=== PATIENT | female | born 1945 | race Caucasian/White ===

== ENCOUNTER → 2019-10-27 10:23 | Outpatient (CLI) | payer MEDICARE, OTHER, SELFPAY ==
[2019-10-27 13:18] LABS: Coronavirus 19 IgG Antibody Negative (Negative); Coronavirus 19 IgM Antibody Negative (Negative)
== END ==
PROVIDERS: PCP Internal Medicine Gastroenterology; Visit Provider Internal Medicine Gastroenterology
DX: Z01.818 Encounter for other preprocedural examination (principal)
CPT/HCPCS: 36415; 86328

== ENCOUNTER 2019-10-30 13:29 | Day surgery (SDC) | payer MEDICARE, OTHER, SELFPAY ==
[2019-10-24 12:34] VITALS: BMI 33.5
[2019-10-30] VITALS (7 sets, daily range): BP systolic 117–153; BP diastolic 56–85; PULSE 61–73; RESP 18; TEMP 36.7–36.8; O2SAT 94–100
--- NOTE | 2019-10-30 15:15 | HMH.PROC ---
[facility] Procedure Note Procedure Note:: Upper Endoscopy Procedure Report: Esophagogastroduodenoscopy with cold biopsies Endoscopost: Yovanny García II, MD Referring Physician: Arjun Garcia MD Date of Procedure: October 30, 2019 Equipment: Olympus GIF 180 standard upper endoscope Sedation: MAC sedation Indications: Mrs. Espinoza is a 73-year-old female with iron deficiency anemia. Her recent lab work showed hemoglobin 8.1 and hematocrit 27.4. She did have a mildly elevated platelet count (455,000). The patient's ferritin level was 4. She had normal liver chemistries (alkaline phosphatase 99, ALT 15 and AST 16). She had normal kidney function (creatinine 0.74). She does have a long history of GERD/reflux. She also states that she has had anemia for most of her life. She also has had chronic constipation for most of her life. Her last attempted colonoscopy in January 2012 was only advanced to the sigmoid colon due to a very tortuous sigmoid colon (Dr. Farooq Young). She does state that she has had several attempted colonoscopies in the past that were failed. She reports no melena, hematochezia or bright red blood per rectum. She reports no abdominal pain or weight loss. She does get some throat fullness. Procedure: Prior to the procedure, a history and physical exam was performed, and patient's medications and allergies were reviewed. The risks, benefits and alternatives of the sedation and procedure were discussed with the patient. All questions were answered and informed consent was obtained. The patient was brought to the procedure room. Patient identification and proposed procedure were verified by the physician and the nurse. The patient was placed in a left lateral decubitus position and the scope was passed under direct vision. Throughout the procedure, the patient's blood pressure, pulse, and oxygen saturations were monitored continuously. The upper GI endoscopy was accomplished without difficulty. The patient tolerated the procedure well. Findings: The scope was passed directly into the upper esophagus and advanced to the third portion of the duodenum. The post bulbar duodenum and duodenal bulb were normal with normal mucosa and conniventes. Cold biopsies were taken from the post bulbar duodenum and duodenal bulb to rule out celiac disease. The scope was withdrawn through a normal duodenal bulb and pylorus into the stomach. There was mild linear reactive gastropathy of the antrum and body of the stomach with bile reflux consistent with linear reactive gastropathy/chemical gastropathy. The remainder of the antrum, body and fundus of the stomach were grossly normal. Upon retroflexion there was a very small 1 to 2 cm hiatal hernia. 2 biopsies were taken in the antrum and along the lesser curvature for histology to rule out gastritis and/or H pylori. The scope was then withdrawn into the esophagus. There was no evidence of reflux esophagitis or Gutierrez's. There were some tertiary contractions and evidence of mild esophageal dysmotility. The remainder of the esophageal mucosa was normal. Impression: 1. Nonerosive GERD with mild esophageal dysmotility 2. Bile reflux with mild linear reactive gastropathy Plan: There was no clear source for the patient's iron deficiency anemia. I would recommend Hemoccult testing. If the patient is strongly or clearly Hemoccult positive, I would still recommend colonoscopy. I know that she has had difficulty in the past with colonoscopy and incomplete colonoscopy. I do feel that this can be completed safely but if failure, I would consider virtual colonoscopy. I would also consider video capsule enteroscopy. If the patient is Hemoccult negative, we may not need to proceed further. I will discuss everything with the patient and family. I will follow-up the biopsies today.
== END 2019-10-30 16:20 | disposition home or self-care (01) ==
LOC: OUTP 13:33
PROVIDERS: PCP Internal Medicine; Visit Provider Internal Medicine Gastroenterology
PROC: 0DJ08ZZ Inspection of Upper Intestinal Tract, Via Natural or Artificial Opening Endoscopic (ICD-10-PCS; CPT 43235; principal; 2019-10-30 14:30)
DX: K21.9 Gastro-esophageal reflux disease without esophagitis (principal); K22.2 Esophageal obstruction; K31.9 Disease of stomach and duodenum, unspecified; D50.9 Iron deficiency anemia, unspecified; I48.20 Chronic atrial fibrillation, unspecified; I10 Essential (primary) hypertension; E78.5 Hyperlipidemia, unspecified; I25.2 Old myocardial infarction; I49.9 Cardiac arrhythmia, unspecified; Z86.73 Personal history of transient ischemic attack (TIA), and cerebral infarction without residual deficits; Z85.9 Personal history of malignant neoplasm, unspecified; Z88.0 Allergy status to penicillin
CPT/HCPCS: 43239; 88305

== ENCOUNTER → 2019-11-03 09:07 | Outpatient (CLI) | payer MEDICARE, OTHER, SELFPAY ==
[2019-11-03 13:26] LABS: Coronavirus 19 IgG Antibody Negative (Negative); Coronavirus 19 IgM Antibody Negative (Negative)
== END ==
PROVIDERS: Visit Provider Internal Medicine Gastroenterology
DX: Z01.818 Encounter for other preprocedural examination (principal)
CPT/HCPCS: 36415; 86328

== ENCOUNTER 2019-11-06 12:15 | Day surgery (SDC) | payer MEDICARE, OTHER, SELFPAY ==
[2019-11-03 11:38] VITALS: BMI 33.6
[2019-11-06] VITALS (7 sets, daily range): BP systolic 86–150; BP diastolic 49–83; PULSE 71–107; RESP 12–18; TEMP 36.3–36.8; O2SAT 94–98
--- NOTE | 2019-11-06 13:36 | HMH.PROC ---
[facility] Procedure Note Procedure Note:: Colonoscopy Procedure Report: Colonoscopy with cold snare polypectomy Endoscopist: Yovanny García II, MD Referring physician: Arjun Garcia MD Date of Procedure: November 06, 2019 Equipment: Olympus 180 variable stiffness pediatric colonoscope Sedation: MAC sedation Indication: Mrs. Espinoza is a 73-year-old female with iron deficiency anemia. Her recent hemoglobin and hematocrit were 8.1 and 27.4. Her ferritin level was 4. She has had anemia most of her life. She had an attempted colonoscopy in January 2012 but the colonoscope was not advanced beyond the sigmoid colon. She has had several attempted colonoscopies that were incomplete. The patient did have an EGD with [facility] on October 30, 2019 that showed some mild linear reactive gastropathy and nonerosive GERD but certainly no clear explanation for her presumed chronic gastrointestinal blood loss. The patient has had some chronic constipation for most of her life. She reports no rectal bleeding or melena. Procedure: Prior to the procedure, a history and physical exam was performed, and patient's medications and allergies were reviewed. The risks, benefits and alternatives of the sedation and procedure were discussed with the patient. All questions were answered and informed consent was obtained. The patient was brought to the procedure room. Patient identification and proposed procedure were verified by the physician and the nurse. The patient was placed in a left lateral decubitus position and the scope was passed under direct vision. Throughout the procedure, the patient's blood pressure, pulse, and oxygen saturations were monitored continuously. The colonoscopy was accomplished without difficulty. The patient tolerated the procedure well. Findings: On digital rectal examination there was normal rectal tone. There were no external hemorrhoids. The colonoscope was introduced through the anal canal to the rectum and advanced to the cecum. The ileocecal valve and appendiceal orifice were identified. The scope was advanced a short distance into the ileum which appeared grossly normal. The scope was then withdrawn into the colon. There was a diminutive 4 mm polyp in the cecum and a diminutive 3 mm polyp in the descending colon. Both of these were removed via cold snare polypectomy. There was some colonic tortuosity. There was also evidence of mild melanosis coli throughout the colon. There were scattered diverticuli throughout the descending and sigmoid colon (LEFT colon). The rectum itself was normal. Upon retroflexion within the rectum there were grade 1 internal hemorrhoids. The preparation was excellent throughout with [place] Preparation Score of 9. The cecal time was 13 minutes. Impression: 1. Diminutive colonic polyps x2 2. Mild melanosis coli 3. Left-sided diverticulosis 4. Grade 1 internal hemorrhoids Plan: There was no clear source for the patient's iron deficiency anemia. I am going to recommend Hemoccult testing. If the patient is strongly Hemoccult positive, I would consider video capsule enteroscopy. I will follow-up the polyp histology and discuss whether surveillance colonoscopy is warranted if these polyps are adenomatous. I am going to recommend a fiber bowel regimen on a maintenance basis.
== END 2019-11-06 14:43 | disposition home or self-care (01) ==
LOC: OUTP 12:18
PROVIDERS: PCP Internal Medicine; Visit Provider Internal Medicine Gastroenterology
PROC: 0DJD8ZZ Inspection of Lower Intestinal Tract, Via Natural or Artificial Opening Endoscopic (ICD-10-PCS; CPT 45378; principal; 2019-11-06 13:00)
DX: K64.0 First degree hemorrhoids (principal); K63.5 Polyp of colon; K57.30 Diverticulosis of large intestine without perforation or abscess without bleeding; K63.89 Other specified diseases of intestine; Z87.19 Personal history of other diseases of the digestive system; I48.91 Unspecified atrial fibrillation; I10 Essential (primary) hypertension; E78.5 Hyperlipidemia, unspecified; K21.9 Gastro-esophageal reflux disease without esophagitis; Z87.39 Personal history of other diseases of the musculoskeletal system and connective tissue; Z88.0 Allergy status to penicillin; Z79.899 Other long term (current) drug therapy; Z90.710 Acquired absence of both cervix and uterus
CPT/HCPCS: 45385; 88305

== ENCOUNTER → 2019-11-07 14:42 | Outpatient (CLI) | payer MEDICARE, OTHER, SELFPAY ==
[2019-11-09 15:05] LABS: Occult Blood,Stool Negative (Negative)
== END ==
PROVIDERS: Visit Provider Internal Medicine Gastroenterology
DX: D64.9 Anemia, unspecified (principal)
CPT/HCPCS: 82272; G0328

== ENCOUNTER → 2019-11-08 14:45 | Outpatient (CLI) | payer MEDICARE, OTHER, SELFPAY ==
[2019-11-09 15:06] LABS: Occult Blood,Stool Positive (Negative)
== END ==
PROVIDERS: Visit Provider Internal Medicine Gastroenterology
DX: D50.0 Iron deficiency anemia secondary to blood loss (chronic) (principal)
CPT/HCPCS: 82272; G0328

== ENCOUNTER → 2019-11-09 14:48 | Outpatient (CLI) | payer MEDICARE, OTHER, SELFPAY ==
[2019-11-09 15:06] LABS: Occult Blood,Stool Positive (Negative)
== END ==
PROVIDERS: Visit Provider Internal Medicine Gastroenterology
DX: K92.1 Melena (principal)
CPT/HCPCS: 82272; G0328

== ENCOUNTER 2025-01-12 15:25 | Outpatient (CLI) | payer MEDICARE, OTHER, SELFPAY ==
--- NOTE | 2025-01-12 15:28 | MM_ITS ---
PROCEDURE INFORMATION: Exam: MG Bilateral Screening 3D Mammography Exam date and time: 01/12/2025 3:36 PM Age: 79 years old Clinical indication: Screening examination. A paternal aunt breast cancer. TECHNIQUE: Imaging protocol: Bilateral Screening tomosynthesis and 2D mammography including computer-aided detection (CAD) when performed. COMPARISON: 1. [facility] SCR[facility] MAMMO W/CAD BILAT 09/22/2023 9:51 AM 2. MG [facility] SCRN MAMMO W/CAD BILAT 07/22/2022 9:21 AM 3. MG [facility]CRN MAMMO W/CAD BILAT 07/17/2021 8:21 AM 4. MG [facility]CRN MAMMO W/CAD BILAT 07/04/2020 9:00 AM FINDINGS: MAMMOGRAPHY: Breast composition: There are scattered areas of fibroglandular density. Mass: No suspicious mass. Architectural distortion: None. Calcifications: No suspicious calcifications. Asymmetric density: None. Skin thickening: None. Axillary adenopathy: None. IMPRESSION: No mammographic evidence of malignancy. Annual screening is recommended unless otherwise clinically indicated. ASSESSMENT: BI-RADS Category 1: Negative.
== END 2025-01-12 23:59 | disposition home or self-care (01) ==
LOC: RAD 15:26
PROVIDERS: PCP Family Medicine; Visit Provider Family Medicine
DX: Z12.31 Encounter for screening mammogram for malignant neoplasm of breast (principal); R92.323 Mammographic fibroglandular density, bilateral breasts; Z80.3 Family history of malignant neoplasm of breast
CPT/HCPCS: 77063; 77067